=== PATIENT | male | born 1950 ===

== ENCOUNTER → 2018-01-01 | Outpatient (CLI) | payer MEDICARE ==
[2018-01-01 10:37] LABS: Basophils # (A) 0.1 k/uL (0-0.2); Basophils % (A) 1 %; Eosinophils # (A) 0.1 k/uL (0-0.7); Eosinophils % (A) 1 %; HCT 39.5 % (39.0-53.0); HGB 12.9 gm/dL (13.0-17.5); Lymphocytes # (A) 2.6 k/uL (1.0-4.8); Lymphocytes % (A) 23 %; MCH 29.2 pg (25.0-35.0); MCHC 32.5 g/dL (31.0-37.0); MCV 89.8 fL (80.0-100.0); Mean Platelet Volume 7.7; Monocytes # (A) 0.8 k/uL (0-1.0); Monocytes % (A) 7 %; Neutrophils # (A) 7.7 k/uL (1.3-7.7); Neutrophils % (A) 67 %; Platelet Count 237 k/uL (150-450); WBC 11.4 k/uL (3.8-10.6)
[2018-01-01 10:50] LABS: ALT 24 U/L (21-72); AST 18 U/L (17-59); Albumin 3.9 g/dL (3.5-5.0); Alkaline Phosphatase 77 U/L (38-126); Anion Gap 11 mmol/L; Blood Urea Nitrogen 13 mg/dL (9-20); Calcium 9.6 mg/dL (8.4-10.2); Carbon Dioxide 29 mmol/L (22-30); Chloride 105 mmol/L (98-107); Cholesterol 162 mg/dL (<200); Glucose 92 mg/dL (74-99); HDL Cholesterol 42 mg/dL (40-60); LDL Cholesterol,Calculated 105 mg/dL (0-99); Potassium 4.2 mmol/L (3.5-5.1); Sodium 145 mmol/L (137-145); Total Bilirubin 0.7 mg/dL (0.2-1.3); Total Protein 6.7 g/dL (6.3-8.2); Triglycerides 73 mg/dL (<150)
[2018-01-01 11:06] LABS: T4, Free (Free Thyroxine) 0.97 ng/dL (0.78-2.19)
== END | disposition home or self-care (01) ==
LOC: LABWHC1 10:10
PROVIDERS: ATTEND Family Medicine
DX: Z00.01 Encounter for general adult medical examination with abnormal findings (principal); Z12.5 Encounter for screening for malignant neoplasm of prostate; Z11.59 Encounter for screening for other viral diseases
CPT/HCPCS: 36415; 80053; 80061; 84153; 84439; 84443; 85025; 86803

== ENCOUNTER 2018-01-22 10:58 | Day surgery (SDC) | payer MEDICARE, OTHER ==
[2018-01-18 16:06] VITALS: BMI 29.4
[~2018-01-22 10:58] MED LIST: LACTATED RINGERS 1,000 ML IV SCH
[2018-01-22 11:51] VITALS: RESP 16; TEMP 97.8
[2018-01-22] MEDS ORDERED: LIDOCAINE 1% 20 ML VIAL (10MG/ML) FOR IV START INTRADERMA ONE (12:00)
[2018-01-22] MEDS ORDERED: PROPOFOL 10 MG/ML 20 ML VIAL IV ONE (13:24)
[2018-01-22] MEDS ORDERED: LIDOCAINE 1% INJ 10MG/ML (20 ML MDV) ONE (13:24)
--- NOTE | 2018-01-22 14:00 | P.PCN ---
Date of Procedure: 01/22/18 Procedure(s) Performed: Procedure: Total colonoscopy. Preoperative diagnosis: Screening for neoplasia. Postoperative diagnosis: Mild sigmoid diverticulosis with no evidence of acute diverticulitis, strictures, polyps or cancer Preparation: HalfLytely prep. Sedation: Was provided by anesthesia. Brief clinical history: The patient is a 67-year-old male who is scheduled for this evaluation because of family history of colon cancer in his father and finding of positive occult blood. His last exam was around 3 years ago. The patient has no abdominal complaints, bleeding or anemia. Procedure: With the patient on his left lateral decubitus position and after informed consent and adequate sedation, the perianal area was inspected and it did not show any fissures or fistulas. There were no masses felt on digital rectal examination. The Olympus CFQ 160L video colonoscope was then inserted in the rectum in the usual fashion and advanced to the cecum. There was occasional small diverticular orifices seen in the sigmoid with no evidence of acute diverticulitis or strictures. The mucosa appeared healthy. No polyps or tumors were seen or any other pathology. I retroflexed the endoscope in the rectum before the endoscope was withdrawn. Low-grade internal hemorrhoids were noted with no evidence of bleeding. The patient tolerated the procedure well. Plan: The patient was reassured. Discussed dietary measures. I recommended repeat exam in 5 years. He will follow up with you as planned.
[2018-01-22 14:12] VITALS: BP 131/71; PULSE 75
== END 2018-01-22 14:45 | disposition home or self-care (01) ==
LOC: ORWHC2ENDO 10:58
DX: K64.8 Other hemorrhoids (principal); K57.30 Diverticulosis of large intestine without perforation or abscess without bleeding; Z80.0 Family history of malignant neoplasm of digestive organs; K21.9 Gastro-esophageal reflux disease without esophagitis; I25.10 Atherosclerotic heart disease of native coronary artery without angina pectoris; I10 Essential (primary) hypertension; H91.90 Unspecified hearing loss, unspecified ear; Z79.82 Long term (current) use of aspirin; Z79.899 Other long term (current) drug therapy; Z88.5 Allergy status to narcotic agent
CPT/HCPCS: 45378; J2001; J2704

== ENCOUNTER → 2018-02-21 | Outpatient (CLI) | payer MEDICARE, OTHER ==
[2018-02-21 19:15] LABS: Blood Urea Nitrogen 17 mg/dL (9-20)
--- NOTE | 2018-02-22 08:31 | CT ---
EXAMINATION TYPE: CT chest w con DATE OF EXAM: 02/21/2018 COMPARISON: NONE HISTORY: Right sided chest and axilla pain x [address] DLP: 423.6 mGycm, Automated exposure control for dose reduction was used. CONTRAST: Performed injected with 100 mL of Isovue 300. TECHNIQUE: Axial images were obtained at 5 mm thick sections. Reconstructed images are reviewed on [employer] computer in the coronal plane. FINDINGS: Portion of the thyroid visualized is normal. No suspicious lung nodules or focal infiltrates are present. No enlarged mediastinal or hilar adenopathy is evident. The ascending aorta diameter at the level o f the main pulmonary artery is 3.8 cm. The main pulmonary artery diameter at the bifurcation is 2.5 cm. Coronary artery calcification is present. The right axillary region appears normal. There are some scattered small lymph nodes present. Limited CT sections are obtained through the upper abdomen. Abdomen is essentially unremarkable. Gall bladder is surgically absent. IMPRESSIONS: 1. Normal Chest CT.
== END | disposition home or self-care (01) ==
LOC: RADCTMAIN 18:33
PROVIDERS: ATTEND Family Medicine
DX: R07.9 Chest pain, unspecified (principal)
CPT/HCPCS: 82565; 84520; 71260; 36415; Q9967

== ENCOUNTER → 2021-01-01 | Outpatient (CLI) | payer MEDICARE, OTHER ==
--- NOTE | 2021-01-01 13:16 | US ---
EXAMINATION TYPE: US abdomen complete DATE OF EXAM: 01/01/2021 COMPARISON: NONE CLINICAL HISTORY: 70-year-old male R16.0 Hepatomegaly, R16.1 Splenomegaly. Abnormal labs. GB removed. TECHNIQUE: Multiple sonographic images of the abdomen are obtained. FINDINGS: EXAM MEASUREMENTS: Liver Length: 16.9 cm CBD: 0.6 cm Spleen: 12.0 cm Right Kidney: 11.8 x 5.2 x 5.5 cm Left Kidney: 12.9 x 5.5 x 5.8 cm Pancreas: Echogenic in appearance. Head and tail not well visualized due to overlying bowel gas. Hy poechoic, possibly cystic nonvascular lesion measuring 1.1 x 1.3 x 0.5 cm within the pancreatic body. Liver: wnl Gallbladder fossa: Obscured by overlying bowel gas Evidence for sonographic العراقي's sign: neg CBD: Borderline caliber Spleen: wnl Right Kidney: No hydronephrosis or masses seen Left Kidney: Multiple cysts are present, largest measured. 1- medial = 2.0 x 1.9 x 1.7 cm. 2- mid upper exophytic = 1.5 x 1.5 x 1.4 cm. Upper IVC: wnl Abd Aorta: Mid portion not visualized. No AAA visualized. IMPRESSION: 1. A 1.3 x 1.1 cm lesion of the pancreatic body. Further evaluation with multiphasic pancreas MRI is recommended. 2. Borderline caliber to the bile duct is 6 mm. This is acceptable given patient's age and postcholec ystectomy status.
== END | disposition home or self-care (01) ==
LOC: RADUSWWP 08:41
PROVIDERS: ATTEND Internal Medicine Hematology & Oncology
DX: R16.2 Hepatomegaly with splenomegaly, not elsewhere classified (principal); Z90.49 Acquired absence of other specified parts of digestive tract
CPT/HCPCS: 76700

== ENCOUNTER → 2021-01-27 | Outpatient (CLI) | payer MEDICARE, OTHER ==
--- NOTE | 2021-01-28 04:52 | MR ---
EXAMINATION TYPE: MR MRCP DATE OF EXAM: 01/27/2021 COMPARISON: None HISTORY: Pancreatic lesion Multiplanar multiecho imaging of the abdomen was performed without contrast. There are MRCP images. Liver appears normal. There is no focal defect. The bile ducts are not dilated. Common bile duct lizeth ures up to 8 mm. I see no filling defects. Spleen is intact. Stomach is intact. The pancreatic duct a ppears normal. I see no evidence of pancreatic mass. Kidneys show no hydronephrosis. There are multiple cortical cysts in the left kidney that measure up to 2 cm. There is no sign of retroperitoneal adenopathy. MRCP images show normal biliary tree. There is no ascites. There is no evidence of pleural effusion. There is no sign of pericardial effusi on. IMPRESSION: Negative exam. No dilated ducts. No evidence of pancreatic mass. Multiple simple left side renal cortical cysts.
== END | disposition home or self-care (01) ==
LOC: RADMRIMAIN 21:07
PROVIDERS: ATTEND Nurse Practitioner Adult Health
DX: N28.1 Cyst of kidney, acquired (principal)
CPT/HCPCS: 74181

== ENCOUNTER → 2021-02-16 | Outpatient (CLI) | payer MEDICARE, OTHER ==
[2021-02-16 07:44] LABS: African American GFR (CKD) >90 (>60 ml/min/1.73 sqM); Blood Urea Nitrogen 14 mg/dL (9-20); Non-African American GFR(CKD) >90 (>60 ml/min/1.73 sqM)
--- NOTE | 2021-02-16 09:04 | CT ---
EXAMINATION TYPE: CT abdomen w con DATE OF EXAM: 02/16/2021 COMPARISON: MRI of the abdomen 01/27/2021. HISTORY: Pancreatic mass CT DLP: 736.6 mGycm CONTRAST: CT scan of the abdomen and pelvis is performed without Oral Contrast and with IV Contrast, patient in jected with 100 mL of Isovue 300. FINDINGS: LUNG BASES-: No visible nodule. No infiltrate. LIVER/GB: The gallbladder is surgically absent. No space occupying hepatic lesion. Biliary tree is of normal caliber. PANCREAS: No inflammation. No distinct mass. SPLEEN: No splenic enlargement. No lesion seen. ADRENALS: No nodule. No thickening. KIDNEYS/BLADDER: No hydronephrosis. No nephrolithiasis. No distinct renal mass. Urinary bladder g rossly unremarkable. BOWEL: Normal appendix. Normal bowel caliber. No inflammation. LYMPH NODES: No greater than 1cm abdominal or pelvic lymph nodes are appreciated. AORTA: No significant abnormality. OSSEOUS STRUCTURES: No significant abnormality is seen. OTHER: No significant additional abnormality is seen. IMPRESSION: 1. No pancreatic mass visualized.
== END | disposition home or self-care (01) ==
LOC: RADCTMAIN 06:50
PROVIDERS: ATTEND Family Medicine
DX: K86.9 Disease of pancreas, unspecified (principal)
CPT/HCPCS: 82565; 84520; 74160; 36415; Q9967

== ENCOUNTER → 2021-10-15 | Outpatient (CLI) | payer MEDICARE, OTHER ==
--- NOTE | 2021-10-15 17:30 | CT ---
EXAMINATION TYPE: CT angio chest DATE OF EXAM: 10/15/2021 COMPARISON: 02/21/2018 HISTORY: Abnormal coagulation profile. Hx Covid 10/04/21 Stat hold and call CT DLP: 370.70 mGycm Automated exposure control for dose reduction was used. CONTRAST: Performed with IV Contrast, patient injected with 100 mL of Isovue 300. Images obtained from the thoracic inlet to the diaphragm with IV contrast. There are Three-D postproc essed images. There is coarse interstitial density throughout the lungs. There is no mediastinal adenopathy. There are no hilar masses. Thoracic aorta is intact. There is no aneurysm or dissection. There is normal contrast opacification of the pulmonary arteries. There are no filling defects. The thoracic spine is intact. There is degenerative spur formation anteriorly throughout the mid and lower thoracic spine. There is no compression fracture. Sternum is intact. IMPRESSION: No evidence of pulmonary embolism. Patchy peripheral pulmonary interstitial pneumonia. Pneumonia appe ars new compared to the old exam.
== END | disposition home or self-care (01) ==
LOC: RADCTMAIN 16:08
PROVIDERS: ATTEND Family Medicine
DX: J84.9 Interstitial pulmonary disease, unspecified (principal); Z86.16 Personal history of COVID-19
CPT/HCPCS: 71275; Q9967

== ENCOUNTER → 2021-10-22 | Outpatient (CLI) | payer MEDICARE, OTHER | END | disposition home or self-care (01) | LOC: LABWHC1 13:35 | DX: D46.4 Refractory anemia, unspecified (principal) | CPT/HCPCS: 36415; 82668 ==

== ENCOUNTER → 2022-05-27 | Outpatient (CLI) | payer MEDICARE, OTHER ==
[~2022-05-27] MED LIST changes: +BEBTELOVIMAB (EUA) 175 MG/2 ML VIAL IV NR; -LACTATED RINGERS 1,000 ML IV SCH; +SODIUM CHLORIDE 0.9% 500 ML 500 ML in EMPTY BAG 1 BAG IV PRN
== END ==
LOC: PROCWHC3 13:57
PROVIDERS: ATTEND Physician Assistant
DX: Z53.9 Procedure and treatment not carried out, unspecified reason (principal)

== ENCOUNTER → 2023-09-22 | Outpatient (CLI) | payer MEDICARE, OTHER ==
[2023-09-22 11:58] LABS: African American GFR (CKD) >90 (>60 ml/min/1.73 sqM); Blood Urea Nitrogen 12 mg/dL (9-20); Non-African American GFR(CKD) >90 (>60 ml/min/1.73 sqM)
--- NOTE | 2023-09-22 15:06 | CT ---
EXAMINATION TYPE: CT ChestAbdPelvis w con DATE OF EXAM: 09/22/2023 COMPARISON: CT abdomen dated 02/16/[address] chest dated 10/15/2021 HISTORY: abnormal weight loss. History of bone marrow cancer. CT DLP: 1007.2 mGycm Automated exposure control for dose reduction was used. CONTRAST: CT scan of the chest, abdomen and pelvis is performed with Oral Contrast and with IV Contrast, patien t injected with 100 mL of Isovue 300. FINDINGS: CT chest: There is a 4.6 mm nodule in the right middle lobe. There is no abnormal airspace/consolidative densi ty or interstitial density. There is no suspicious lung mass. There is no pleural effusion, pleural thickening or pneumothorax. The great vessels the chest are normal and there is no mediastinal, hilar or axillary adenopathy No lytic or blastic osseous abnormalities are seen within the bony thorax. CT abdomen and pelvis: There are surgical absence of the gallbladder. There is no focal mass or organomegaly involving the liver, pancreas, spleen or adrenal glands. There are multiple left renal cyst but there is no solid renal mass or hydronephrosis. Caliber the abdominal aorta is normal. There is no retroperitoneal adenopathy or hemorrhage. The bowel loops are normal in caliber and there is no dilatation or obstruction. No inflammatory gallagher ges identified in the bowel wall or mesentery and there is no free intraperitoneal air or fluid. There is no pelvic mass, free fluid, abscess or adenopathy. There is mild to moderate prostatic hyper trophy. There is diverticulosis of the colon but no acute diverticulitis. No focal osseous abnormalities are seen. IMPRESSION: No significant abnormality within the chest, abdomen or pelvis.
== END | disposition home or self-care (01) ==
LOC: RADCTMAIN 11:13
PROVIDERS: ATTEND Family Medicine
DX: R63.4 Abnormal weight loss (principal); Z90.49 Acquired absence of other specified parts of digestive tract
CPT/HCPCS: 82565; 84520; 71260; 74177; 36415; Q9967

== ENCOUNTER → 2024-02-15 | Outpatient (CLI) | payer MEDICARE ==
--- NOTE | 2024-02-15 22:21 | CT ---
EXAMINATION TYPE: CT chest wo con CT DLP: 520 mGycm, Automated exposure control for dose reduction was used. DATE OF EXAM: 02/15/2024 9:31 AM COMPARISON: CT chest abdomen pelvis 09/22/2023, CTA chest 10/15/2021, CT chest 02/21/2018 CLINICAL INDICATION:Male, 73 years old with history of R91.1 SOLITARY PULMONARY NODULE; PHH, SOLITARY PULMONARY NODULE TECHNIQUE: Multiple axial images were obtained through the chest without IV contrast. Lack of IV or o ral contrast limits evaluation of solid and hollow organ viscera. . Coronal and sagittal reformats re viewed. FINDINGS: LUNGS/ PLEURA: No pleural effusion, pneumothorax, or focal consolidation. Stable left lower lobe 5 m m pulmonary nodule (series 4, image 49). Stable left lower lobe 3 mm pulmonary nodule (series 4, imag e 48). Stable right midlung 3.5 mm pulmonary nodule (series 4, image 38). No new or enlarging pulmona ry nodules. AIRWAY: Patent and unremarkable.. HEART: Size within normal limits. Moderate to severe three-vessel coronary artery calcifications. MEDIASTINUM: No gross evidence of adenopathy. VASCULATURE: No aortic aneurysm. MUSCULOSKELETAL: No acute osseous abnormalities. Remote left-sided rib fractures. No suspicious osseo us lesions. Degenerative changes of the thoracic spine. Postsurgical changes of the left shoulder wit h orthopedic anchors. Remote injury to the left scapula. SOFT TISSUES/LYMPH NODES: Unremarkable. LOWER NECK: No significant findings. UPPER ABDOMEN: Postcholecystectomy changes. Stable left renal cyst. Partial visualization of duodenal diverticulum. IMPRESSION: No acute thoracic process. Few scattered stable pulmonary nodules dating back to 2018 and considered benign. No new or enlarging pulmonary nodules.
== END | disposition home or self-care (01) ==
LOC: RADCTMAIN 09:12
PROVIDERS: ATTEND Family Medicine
DX: R91.8 Other nonspecific abnormal finding of lung field (principal)
CPT/HCPCS: 71250